=== PATIENT | female | born 1965 | race American Indian/Alaskan Native ===

== ENCOUNTER 2017-09-05 11:29 | Emergency (ER) | payer OTHER ==
[2017-09-05 11:39] VITALS: BP 152/94; PULSE 90; TEMP 98.6; BMI 31.2
[2017-09-05] MEDS ORDERED: AMPICILLIN NA/SULBACTAM NA 3 GM in SODIUM CHLORIDE 100 ML IVPB ONE (13:30)
--- NOTE | 2017-09-05 14:05 | PDOC ---
Attending Attestation - Resident Resident Name: Magan Worrell - ED Attending Attestation I have performed the following: I have examined & evaluated the patient, The case was reviewed & discussed with the resident, I agree w/resident's findings & plan, Exceptions are as noted - HPI HPI: 09/05/17 14:02 52-year-old female diabetic presents with right index finger pain and swelling. Patient had a crush injury from heavy plate over the weekend, since then has had swelling and increasing pain/bruising to the right index fingertip. No fevers or chills, no sensory deficit. Seen initially in fast track, concern for infection so transfer to main ED. - Physicial Exam PE: 09/05/17 14:02 Afebrile. Right hand: Circumferential soft tissue swelling and ecchymosis to the distal right index fingertip surrounding the distal phalanx, there is healed small skin abrasion to the lateral aspect of the right index fingertip, warm to touch and tender, no significant swelling or tenderness along the remainder of the more proximal flexor tendons, full range of motion of the MCP and PIP. nvi distally - Medical Decision Making 09/05/17 14:04 52-year-old diabetic female with injury to right index fingertip. Question fracture with hematoma, question cellulitis. Will likely need antibiotics given evidence of soft tissue infection in a diabetic, rule out underlying fracture. Lower suspicion for deep tissue infection or flexor tenosynovitis. Right hand x-ray Labs and IV antibiotics Dispo accordingly
--- NOTE | 2017-09-05 14:20 | PDOC ---
History of Present Illness - General Chief Complaint: Edema Stated Complaint: RT FINGER INFECTION Time Seen by Provider: 09/05/17 11:47 History Source: Patient - History of Present Illness Initial Comments: 09/05/17 15:56 Patient is a 52 y.o. female with a PMH of HTN and IDDM who presents with a 5 day h/o R index finger pain and swelling. Patient states she was carrying a steel platter of food and she lost her inter fold roll cutter and it landed on her right finger. Patient states there was a small pinpoint wound that bled for 5 minutes and stopped with the application of pressure. Patient states she noticed the finger became increasingly swollen, red and painful prompting her visit to the ED today. Patient denies any systemic signs of infection such as fever, chills , vomiting. Past History - Past Medical History Allergies/Adverse Reactions: Allergies Allergy/AdvReac Type Severity Reaction Status Date / Time No Known Allergies Allergy Verified 09/05/17 11:38 Home Medications: Ambulatory Orders Amlodipine Besylate 10 mg PO DAILY 09/05/17 Glimepiride [Amaryl] 1 mg PO DAILY 09/05/17 Losartan/Hydrochlorothiazide [Losartan-Hctz 100-25 mg Tab] 1 tab PO DAILY Metformin HCl 500 mg PO BID 09/05/17 Sulfamethoxazole/Trimethoprim [Bactrim Ds Tablet] 1 each PO BID #20 tablet 09/05 Other medical history: ARTHRITIS. - Suicide/Smoking/Psychosocial Hx Smoking History: Never smoked Hx Alcohol Use: No Drug/Substance Use Hx: No Substance Use Type: None Review of Systems - Review of Systems Constitutional: No: Chills, Fever Cardiac (ROS): No: Chest Pain, Irregular Heart Rate, Lightheadedness, Palpitations ABD/GI: No: Constipated, Diarrhea, Nausea, Vomiting : No: Burning, Dysuria Integumentary: Yes: Change in Color, Erythema, Other (edematous, erythematous R 2nd phalanx) All Other Systems: Reviewed and Negative *Physical Exam - Vital Signs Last Vital Signs Temp Pulse Resp BP Pulse Ox 98.6 F 90 18 152/94 98 09/05/17 11:37 09/05/17 11:37 09/05/17 11:37 09/05/17 11:37 09/05/17 11:37 - Physical Exam General Appearance: Yes: Nourished, Appropriately Dressed Respiratory/Chest: positive: Lungs Clear, Normal Breath Sounds Cardiovascular: positive: S1, S2 Lymphatic: negative: Adenopathy Extremity: positive: Other (R 1st phalanx is erythematous, edematous, and warm to touch; small ecchymosis on the ventral surface of the 2nd distal phalanx; neurovascularly intact) Neurologic: positive: Fully Oriented, Alert ED Treatment Course - LABORATORY CBC & Chemistry Diagram: 09/05/17 14:14 09/05/17 14:14 - RADIOLOGY Radiology Studies Ordered: Category Date Time Status FINGER(S) RIGHT [RAD] Stat Radiology 09/05/17 13:24 Ordered Medical Decision Making - Medical Decision Making 09/05/17 16:29 Patient is a 52 y.o. female who presents with an injury to her R second phalanx. On PE patient is neurovascularly intact and there is substantial erythema and ecchymosis - pain is localized to her distal and middle phalanges, no signs of tenosynivitis. PLAN: 1. R 2nd Phalange XR 2. CBC, CMP 3. IV Unasym x1 09/05/17 16:38 CBC, CMP wnL. X-ray shows significant soft tissue swelling but no fracture or subluxation. Patient discharged with return precautions including increased area of erythema or edema and outpatient Abx therapy. *DC/Admit/Observation/Transfer Diagnosis at time of Disposition: Cellulitis - Discharge Dispostion Disposition: HOME Condition at time of disposition: Good - Prescriptions Prescriptions: Sulfamethoxazole/Trimethoprim [Bactrim Ds Tablet] 1 each PO BID #20 tablet - Referrals Referrals: Víctor French MD [Primary Care Provider] - - Patient Instructions Additional Instructions: A prescription has been called to your pharmacy for an antibiotic. Please take the full 10 days as prescribed. You may use ice, elevation of your hand and Motrin for pain relief. Please return to the Emergency Department should you experience any worsening or concerning symptoms.
[2017-09-05 14:51] LABS: BASOPHIL 0.6 % (0-2.0); EOSINOPHIL 0.4 % (0-4.5); MCH 26.7 pg (25.7-33.7); MCHC 32.7 g/dl (32.0-36.0); MEAN CELL VOLUME 81.5 fl (80-96); MEAN PLT VOLUME 9.5 fl (7.5-11.1); NEUTROPHILS 70.6 % (42.8-82.8); PLATELET COUNT 256 K/MM3 (134-434); RDW 14.3 % (11.6-15.6); WHITE BLOOD COUNT 12.1 K/mm3 (4.0-10.0)
[2017-09-05 15:17] LABS: ALBUMIN 4.2 g/dl (3.4-5.0); ANION GAP 9 (8-16); CALCIUM 9.3 mg/dL (8.5-10.1); CO2 29 mmol/L (21-32); CREATININE 0.6 mg/dL (0.55-1.02); GLUCOSE,RANDOM 150 mg/dL (74-106); SGOT/AST 12 U/L (15-37); SGPT/ALT 33 U/L (12-78)
[2017-09-05 15:19] LABS: ALK PHOS 127 U/L (45-117); BILIRUBIN,TOTAL 1.1 mg/dL (0.2-1.0); TOT PROT 8.4 g/dl (6.4-8.2)
== END 2017-09-05 16:29 | disposition home or self-care (01) ==
LOC: JERFT 11:29 → JER 11:29
DX: S61.200A Unspecified open wound of right index finger without damage to nail, initial encounter (principal); W22.8XXA Striking against or struck by other objects, initial encounter; Y93.89 Activity, other specified; Y92.89 Other specified places as the place of occurrence of the external cause; Y99.8 Other external cause status; I10 Essential (primary) hypertension; E11.9 Type 2 diabetes mellitus without complications; Z79.84 Long term (current) use of oral hypoglycemic drugs
CPT/HCPCS: 36415; 73140-TC-RT; 80053; 85025; 99281-25

== ENCOUNTER 2017-09-07 21:47 | Emergency (ER) | payer OTHER ==
[2017-09-07 22:17] VITALS: BP 147/86; PULSE 92; TEMP 98.4; BMI 31.2
--- NOTE | 2017-09-07 23:25 | PDOC ---
Attending Attestation - Resident Resident Name: Magan Worrell - ED Attending Attestation I have performed the following: I have examined & evaluated the patient, The case was reviewed & discussed with the resident, I agree w/resident's findings & plan, Exceptions are as noted - HPI HPI: 09/07/17 23:25 FELON - Physicial Exam PE: 09/07/17 23:25 FELON 09/07/17 23:27 - Medical Decision Making 09/07/17 23:[address] Worrell's assessment and plan
--- NOTE | 2017-09-07 23:35 | PDOC ---
History of Present Illness - General Chief Complaint: Wound Infection Stated Complaint: INJURY Time Seen by Provider: 09/07/17 23:16 History Source: Patient Exam Limitations: No Limitations - History of Present Illness Initial Comments: 09/07/17 23:35 Patient is a 52 y.o. female with a PMH of HTN and IDDM who presents with Right index finger infection. Patient was seen here 2 days prior and d/c on bactrim. Patient has been taking the bactrim and has been having worsening infection and swelling. Patient denies any systemic signs of infection such as fever, chills, vomiting. Past History - Past Medical History Allergies/Adverse Reactions: Allergies Allergy/AdvReac Type Severity Reaction Status Date / Time No Known Allergies Allergy Verified 09/07/17 22:14 Home Medications: Ambulatory Orders Amlodipine Besylate 10 mg PO DAILY 09/05/17 Glimepiride [Amaryl] 1 mg PO DAILY 09/05/17 Losartan/Hydrochlorothiazide [Losartan-Hctz 100-25 mg Tab] 1 tab PO DAILY Metformin HCl 500 mg PO BID 09/05/17 Sulfamethoxazole/Trimethoprim [Bactrim Ds Tablet] 1 each PO BID #20 tablet 09/05 Diabetes: Yes HTN: Yes - Suicide/Smoking/Psychosocial Hx Smoking History: Never smoked Hx Alcohol Use: No Drug/Substance Use Hx: No Substance Use Type: None Review of Systems - Review of Systems Able to Perform ROS?: Yes Constitutional: No: Chills, Fever Respiratory: No: Cough, Shortness of Breath Cardiac (ROS): No: Chest Pain, Edema Integumentary: Yes: Bruising, Change in Color, Other (Right index collection on volar surface) *Physical Exam - Vital Signs Last Vital Signs Temp Pulse Resp BP Pulse Ox 98.4 F 92 H 18 147/86 98 09/07/17 22:16 09/07/17 22:16 09/07/17 22:16 09/07/17 22:16 09/07/17 22:16 - Physical Exam General Appearance: Yes: Nourished, Appropriately Dressed HEENT: positive: CHERI Respiratory/Chest: positive: Lungs Clear, Normal Breath Sounds Cardiovascular: positive: Regular Rhythm, Regular Rate, S1, S2 Integumentary: positive: Other (Right index finger-- +erythema and edema with small collection of pus on ventral surface) Procedures - Incision and Drainage I&D Site: Right: Other (Right distal phalanx --index finger) Betadine cleansed: Yes Anesthesia: 1% Lidocaine Volume(ml): 3 Blade Size: 11 Plain Packing: No Dressing: Yes Medical Decision Making - Medical Decision Making 09/08/17 00:41 Patient has a felon finger. Will perform I&D. Patient stable for d/c *DC/Admit/Observation/Transfer Diagnosis at time of Disposition: Felon of finger of right hand - Discharge Dispostion Disposition: HOME Condition at time of disposition: Stable - Patient Instructions Additional Instructions: Follow up with your primary care provider. Use soap and water to clean the area daily. If you have fever, chills, worsening pain/infection, chest pain, or shortness of breath come back to the hospital immediately.
== END 2017-09-08 00:56 | disposition home or self-care (01) ==
LOC: JER 21:47
PROC: 0H9FXZZ Drainage of Right Hand Skin, External Approach (ICD-10-PCS; principal; 2017-09-07)
DX: L03.011 Cellulitis of right finger (principal); I10 Essential (primary) hypertension; E11.9 Type 2 diabetes mellitus without complications; Z79.4 Long term (current) use of insulin; Z79.84 Long term (current) use of oral hypoglycemic drugs
CPT/HCPCS: 99281-25

== ENCOUNTER 2024-01-12 06:10 | Day surgery (SDC) | payer OTHER ==
[2024-01-05 09:53] VITALS: BMI 27.1
[2024-01-12 07:03] VITALS: RESP 16
[2024-01-12] MEDS ORDERED: CEFAZOLIN 2 GM in DEXTROSE 5%-WATER - 50 ML IVPB ONE (07:15)
[2024-01-12] MEDS ORDERED: ACETAMINOPHEN 325 MG TABLET (FP) PO PRN (07:19)
[2024-01-12] MEDS ORDERED: oxyCODONE HCL 5 MG TABLET PO PRN ×2 (07:19)
[2024-01-12] MEDS ORDERED: ONDANSETRON 4 MG/2 ML VIAL IVPUSH PRN (07:19)
[2024-01-12] MEDS ORDERED: DEXAMETHASONE SOD PHOSPHATE/PF 10 MG/ML SDV ONE (07:23)
[2024-01-12] MEDS ORDERED: ACETAMINOPHEN INJECTION 100 ML IVPB ONE (07:23)
[2024-01-12] MEDS ORDERED: BUPIVACAINE HCL/PF 0.5% (5 MG/ML) 30 ML VIAL IJ ONE (07:23)
[2024-01-12] MEDS ORDERED: LACTATED RINGERS SOLUTION 1,000 ML IV SCH (07:30)
[2024-01-12] MEDS ORDERED: BUPIVACAINE LIPOSOME/PF (EXPAREL) 266 MG/20 ML VIAL ONE (07:33)
[2024-01-12] MEDS ORDERED: FENTANYL CITRATE/PF 50 MCG/ML VIAL ONE (07:54)
[2024-01-12] MEDS ORDERED: MIDAZOLAM HCL 2 MG/2 ML SINGLE DOSE VIAL ONE ×2 (07:54→08:36)
[2024-01-12] MEDS ORDERED: ceFAZolin SODIUM 1 GM VIAL ONE ×2 (08:33)
[2024-01-12] MEDS ORDERED: TRANEXAMIC ACID 1000 MG/10 ML VIAL ONE (08:33)
[2024-01-12] MEDS ORDERED: ONDANSETRON 4 MG/2 ML VIAL ONE (08:33)
[2024-01-12] MEDS ORDERED: BUPIVACAINE HCL/PF 2.5 MG/ML - 30 ML VIAL IJ ONE (08:41)
[2024-01-12] MEDS ORDERED: EPINEPHrine/PF 1 MG/1 ML (1:1,000) AMPULE ONE (08:41)
[2024-01-12] MEDS ORDERED: KETOROLAC TROMETHAMINE 30 MG/1 ML VIAL ONE (09:17)
[2024-01-12 10:47] VITALS: TEMP 97.7
[2024-01-12 12:27] VITALS: BP 130/79; PULSE 84
== END 2024-01-12 11:55 | disposition home or self-care (01) ==
LOC: FASU 06:10
PROVIDERS: ATTEND Orthopaedic Surgery
PROC: 0RBJ4ZZ Excision of Right Shoulder Joint, Percutaneous Endoscopic Approach (ICD-10-PCS; principal; 2024-01-12 08:44)
PROC: 0LS34ZZ Reposition Right Upper Arm Tendon, Percutaneous Endoscopic Approach (ICD-10-PCS; 2024-01-12 08:44)
DX: M75.111 Incomplete rotator cuff tear or rupture of right shoulder, not specified as traumatic (principal); M75.21 Bicipital tendinitis, right shoulder; M75.51 Bursitis of right shoulder; M65.811 Other synovitis and tenosynovitis, right shoulder; S43.431D Superior glenoid labrum lesion of right shoulder, subsequent encounter; M75.01 Adhesive capsulitis of right shoulder; M19.019 Primary osteoarthritis, unspecified shoulder; X58.XXXD Exposure to other specified factors, subsequent encounter
CPT/HCPCS: 82962; 88304-TC; 94760; C1713; J0131